=== PATIENT | male | born 1985 | race Caucasian/White ===

== ENCOUNTER 2020-11-11 12:37 | Emergency (ER) | payer OTHER, SELFPAY ==
[2020-11-11] VITALS (7 sets, daily range): BP systolic 137–148; BP diastolic 88–97; PULSE 56–96; RESP 12–27; TEMP 36.7; O2SAT 94–100; BMI 30.9
[2020-11-11] MEDS: Morphine 4 MG/ML Syringe IV (12:45)
[2020-11-11] MEDS: Ondansetron 4 MG/2 ML Vial IV (12:45)
--- NOTE | 2020-11-11 12:59 | RAD_ITS ---
EXAM: XR RIGHT TIBIA AND FIBULA, 2 VIEWS CLINICAL INDICATION: injury TECHNIQUE: Frontal and lateral views of the right tibia and fibula. This report was created using [employer] report generation technology. COMPARISON: None. FINDINGS: BONES/JOINTS: Acute near complete oblique fracture of the mid fibular shaft. Preservation of the joint space. No sclerotic or destructive changes observed. SOFT TISSUES: Unremarkable. No soft tissue swelling or gas. No radiopaque foreign body. RAD/Tibia & Fibula 2 Views IMPRESSION: Acute near complete oblique fracture of the right mid fibular shaft. Electronically Signed: Hans Weir MD at 13:53 EDT , Service support ,
--- NOTE | 2020-11-11 12:59 | RAD_ITS ---
EXAM: XR RIGHT ANKLE COMPLETE, 3 OR MORE VIEWS CLINICAL INDICATION: injury TECHNIQUE: Frontal, lateral and oblique views of the right ankle. This report was created using [employer] report generation technology. COMPARISON: None. FINDINGS: BONES/JOINTS: Unremarkable. No acute fracture. No subluxation. Normal alignment. Preservation of the joint space. No sclerotic or destructive changes observed. SOFT TISSUES: Unremarkable. No soft tissue swelling or gas. No radiopaque foreign body. RAD/Ankle min 3 Views IMPRESSION: Negative right ankle x-rays. COMMENT: See right leg radiographs showing acute near complete oblique fracture of the right mid fibular shaft. Electronically Signed: Hans Weir MD at 13:55 EDT , Service support ,
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
--- NOTE | 2020-11-11 13:08 | RAD_ITS ---
EXAM: XR RIGHT FOOT COMPLETE, 3 OR MORE VIEWS CLINICAL INDICATION: injury TECHNIQUE: Frontal, lateral and oblique views of the right foot. This report was created using [employer] report generation technology. COMPARISON: None. FINDINGS: BONES/JOINTS: Unremarkable. No acute fracture. No subluxation. Normal alignment. Preservation of the joint space. No sclerotic or destructive changes observed. SOFT TISSUES: Unremarkable. No soft tissue swelling or gas. No radiopaque foreign body. RAD/Foot min 3 Views IMPRESSION: Negative right foot x-rays. COMMENT: See right leg radiograph showing acute near complete oblique fracture of the right mid fibular shaft. Electronically Signed: Hans Weir MD at 13:54 EDT , Service support ,
== END 2020-11-11 14:45 | disposition home or self-care (01) ==
PROVIDERS: Emergency Provider Emergency Medicine
DX: S82.431A Displaced oblique fracture of shaft of right fibula, initial encounter for closed fracture (principal); F17.210 Nicotine dependence, cigarettes, uncomplicated; V86.56XA Driver of dirt bike or motor/cross bike injured in nontraffic accident, initial encounter; Y93.55 Activity, bike riding; Y92.89 Other specified places as the place of occurrence of the external cause; Y99.8 Other external cause status
CPT/HCPCS: 27781; 73590; 73610; 73630; 96374; 96375; 99152; 99283; J7030; A4216; J2405